=== PATIENT | female | born 1995 | race Caucasian/White ===

== ENCOUNTER → 2025-06-03 07:33 | Outpatient (CLI) | payer OTHER, SELFPAY ==
--- NOTE | 2025-06-03 07:37 | DI.US.S_ITS ---
PROCEDURE: US PELVIC COMPLETE INDICATIONS: pain; irregular cycle TECHNIQUE: Real-time scanning was performed of the pelvic organs, with image documentation. Additional endovaginal scanning was necessary due to incomplete visualization of the adnexal and endometrial structures by transabdominal scanning. COMPARISON: None. FINDINGS: Uterus: 9 x 5 x 5.6 cm. Endometrium measures 11 mm, within normal limits for age. Slightly heterogeneous myometrium, with increased echogenic appearance of the left uterine body. Ovaries: Right ovary is enlarged, measuring 43 mL. Simple appearing 3.4 x 2.7 cm cyst Left ovary not seen Other: No pathologic free fluid IMPRESSION: Heterogeneous myometrium with increased echogenic appearance of the left uterine body. This is nonspecific. Differential includes focal adenomyosis. Nonthickened endometrium. Enlarged right ovary with a 3.4 cm simple appearing cyst. Dictated by: Dennis Rodriguez M.D. on 06/03/2025 at 8:48 Approved by: Dennis Rodriguez M.D. on 06/03/2025 at 8:51
== END ==
LOC: US 07:36
PROVIDERS: Referring Provider Nurse Practitioner Obstetrics & Gynecology; Visit Provider Nurse Practitioner Obstetrics & Gynecology
DX: R10.21 Pelvic and perineal pain right side (principal); N92.0 Excessive and frequent menstruation with regular cycle; N83.291 Other ovarian cyst, right side
CPT/HCPCS: 76830; 76856

== ENCOUNTER → 2025-06-06 09:29 | Outpatient (CLI) | payer OTHER, SELFPAY ==
[2025-06-06 10:41] LABS: Add Manual Diff / Slide Review NO; Hematocrit 36.6 % (36-46); Hemoglobin 12.2 g/dL (12.0-16.0); Lymphocytes Absolute Auto 1500 /uL (1100-4500); Mean Corpuscular HGB Conc 33.3 % (30-36); Mean Corpuscular Hemoglobin 26.6 PG (26-34); Mean Corpuscular Volume 80.0 fL (80-100); Platelet Count 234 X10^3/uL (150-400)
[2025-06-06 11:19] LABS: Follicle Stimulating Hormone 1.96 mIU/mL
[2025-06-06 11:34] LABS: Estradiol, Total 117.7 pg/mL
[2025-06-08 13:24] LABS: TSH w/ Reflex to FT4 1.09 uIU/mL (0.47-4.68)
== END ==
PROVIDERS: Referring Provider Nurse Practitioner Obstetrics & Gynecology; Visit Provider Nurse Practitioner Obstetrics & Gynecology
DX: N97.9 Female infertility, unspecified (principal); R10.21 Pelvic and perineal pain right side; N92.0 Excessive and frequent menstruation with regular cycle
CPT/HCPCS: 36415; 82397; 82670; 83001; 83002; 84146; 84443; 85025